=== PATIENT | female | born 1945 | race Caucasian/White ===

== ENCOUNTER → 2017-08-19 | Outpatient (REF) | payer MEDICARE, OTHER ==
[~2017-08-19] MED LIST: /MOM400 PO; BACTDSTA PO; CALC500T21 PO; LISI5TAB PO; MULTTAB4 PO; OXYC-208 PO; VITA-112 PO
== END ==
LOC: M LAB REF 13:10
PROVIDERS: ATTEND Podiatrist Foot & Ankle Surgery
DX: L03.115 Cellulitis of right lower limb (principal)

== ENCOUNTER → 2017-08-30 | Outpatient (REF) | payer MEDICARE, OTHER ==
[2017-08-30 15:58] LABS: BASO # 0.1 10^3/uL (0.0-0.2); BASO % 0.9 % (0.0-1.0); EOS # 0.2 10^3/uL (0.0-0.50); IMMATURE GRANULOCYTE % 0.3 % (0-0); LYMPH # 1.1 10^3/uL (1.5-4.5); LYMPH % 15.9 % (24.0-44.0); MEAN CORPUSCULAR HEMOGLOBIN 31.5 pg (27.0-33.0); MEAN CORPUSCULAR HGB CONC 33.8 g/dl (32.0-36.5); MEAN CORPUSCULAR VOLUME 93.1 fl (80.0-96.0); MONO # 0.7 10^3/uL (0.0-0.8); MONO % 9.8 % (0.0-5.0); NEUTROPHILS # 4.9 10^3/uL (1.8-7.7); NEUTROPHILS % 70.1 % (36.0-66.0); PLATELET COUNT, AUTOMATED 288 10^3/uL (150-450); RED CELL DISTRIBUTION WIDTH 14.5 % (11.5-14.5)
== END ==
LOC: M LABDRAW1 14:12
PROVIDERS: ATTEND Podiatrist Foot & Ankle Surgery
DX: M10.9 Gout, unspecified (principal)

== ENCOUNTER → 2017-11-10 | Outpatient (CLI) | payer MEDICARE, OTHER ==
--- NOTE | 2017-11-10 09:25 | REPMRS ---
Patient History The patient states she had a clinical breast exam in 03/15 Patient is postmenopausal. Family history of breast cancer in mother at age 80. Took hormonal contraceptives for 2 years. Took unspecified hormones for 1 year 6 months. Digital Woman Screen Mammo: November 10, 2017 - Exam #: [id number] Bilateral CC and MLO view(s) were taken. Technologist: Maty Santiago, Technologist Prior study comparison: November 09, 2016, digital woman screen mammo performed at [facility]. November 08, 2015, digital woman screen mammo performed at [facility]. FINDINGS: There are scattered fibroglandular densities. There has been no change in the appearance of the mammogram from the prior studies. There is a mild amount of residual fibroglandular tissue which is fairly symmetric. There is no interval development of dominant mass, architectural distortion, or clustered microcalcification suggestive of malignancy. ASSESSMENT: BI-RADS/ACR category 1 mammogram. Negative. Recommendation Routine screening mammogram in 1 year (for women over age 40). This mammogram was interpreted with the aid of an FDA-approved computer-aided dectection system. Electronically Signed By: Ike Keen MD 11/10/17 5069
== END ==
LOC: M WHC 08:11
PROVIDERS: ATTEND Internal Medicine
DX: Z12.31 Encounter for screening mammogram for malignant neoplasm of breast (principal); Z78.0 Asymptomatic menopausal state; Z92.0 Personal history of contraception

== ENCOUNTER → 2018-11-11 | Outpatient (CLI) | payer MEDICARE, OTHER | LOC: M WHC 14:27 | DX: Z12.31 Encounter for screening mammogram for malignant neoplasm of breast (principal); M81.0 Age-related osteoporosis without current pathological fracture; Z80.3 Family history of malignant neoplasm of breast; Z92.0 Personal history of contraception; Z92.29 Personal history of other drug therapy | CPT/HCPCS: 77067 ==

== ENCOUNTER → 2019-11-13 | Outpatient (CLI) | payer MEDICARE, OTHER ==
[~2019-11-13] MED LIST changes: -/MOM400 PO; -BACTDSTA PO; +MILK10SU PO; +SULF1TAB23 PO
--- NOTE | 2019-11-13 13:56 | REPMRS ---
Patient History The patient states she has not had a clinical breast exam in over a year. Family history of breast cancer at age 80 in mother. Took hormonal contraceptives for 2 years. Took unspecified hormones for 1 year 6 months. Digital Woman Screen Mammo: November 13, 2019 - Exam #: [id number] Bilateral CC and MLO view(s) were taken. Technologist: Kaylin George, Technologist Prior study comparison: November 11, 2018, bilateral digital woman screen mammo performed at [facility]. November 10, 2017, digital woman screen mammo performed at [facility]. November 09, 2016, digital woman screen mammo performed at [facility]. FINDINGS: The breast tissue is heterogeneously dense. This may lower the sensitivity of mammography. There is a moderate amount of heterogeneously dense fibroglandular tissue which is fairly symmetric. There is no interval development of dominant mass, architectural distortion, or grouped microcalcification typical of malignancy. There has been no change in the appearance of the mammogram from the prior studies. 3-D tomosynthesis shows no additional findings. Assessment: BI-RADS/ACR category 1 mammogram. Negative Mammogram. Recommendation Routine screening mammogram of both breasts in 1 year (for women over age 40). This patient's Lifetime Breast Cancer RIsk is estimated at 7.6 %. This mammogram was interpreted with the aid of an FDA-approved computer-aided dectection system. Electronically Signed By: Salvatore Soliman MD 11/13/19 0871
== END ==
LOC: M WHC 12:59
PROVIDERS: ATTEND Internal Medicine
DX: Z12.31 Encounter for screening mammogram for malignant neoplasm of breast (principal)

== ENCOUNTER → 2020-10-02 | Outpatient (REF) | payer MEDICARE, OTHER | LOC: M LAB REF 12:39 | PROVIDERS: ATTEND Internal Medicine | DX: L65.9 Nonscarring hair loss, unspecified (principal); R23.1 Pallor ==

== ENCOUNTER → 2020-11-14 | Outpatient (CLI) | payer MEDICARE, OTHER ==
--- NOTE | 2020-11-14 09:47 | REPMRS ---
Patient History Family history of breast cancer at age 80 in mother. Took hormonal contraceptives for 2 years. Took unspecified hormones for 1 year 6 months. Digital Woman Screen Mammo: November 14, 2020 - Exam #: [id number] Bilateral CC and MLO view(s) were taken. Technologist: Kaylin George, Technologist Prior study comparison: November 13, 2019, bilateral digital woman screen mammo performed at [facility]. November 11, 2018, bilateral digital woman screen mammo performed at [facility]. November 10, 2017, digital woman screen mammo performed at [facility]. FINDINGS: There are scattered fibroglandular densities. The Volpara volumetric breast density category is:B. There has been no change in the appearance of the mammogram from the prior studies. There is a mild amount of scattered fibroglandular density which is fairly symmetric. There is no interval development of dominant mass, architectural distortion, or grouped microcalcification suggestive of malignancy. 3-D tomosynthesis shows no additional findings. Assessment: BI-RADS/ACR category 1 mammogram. Negative Mammogram. Recommendation Routine screening mammogram of both breasts in 1 year (for women over age 40). This patient's [facility] Lifetime Breast Cancer Risk is estimated at 7.0 %. This mammogram was interpreted with the aid of an FDA-approved computer-aided dectection system. Electronically Signed By: Salvatore Soliman MD 11/14/20 0946
== END ==
LOC: M WHC 09:03
PROVIDERS: ATTEND Internal Medicine
DX: Z12.31 Encounter for screening mammogram for malignant neoplasm of breast (principal); M81.0 Age-related osteoporosis without current pathological fracture; Z80.3 Family history of malignant neoplasm of breast; Z92.0 Personal history of contraception

== ENCOUNTER → 2020-11-27 | Outpatient (CLI) | payer MEDICARE, OTHER ==
--- NOTE | 2020-11-27 14:21 | DEXAMM ---
INDICATION: M81.0 AGE RELATED OSTEOOROSIS. COMPARISON: Multiple comparison studies the most recent of which is from the November 11, 2018 and the most remote is dated September 06, 2001.. TECHNIQUE: Bone density was measured using dual-energy x-ray absorptionmetry (DEXA). FINDINGS: AP SPINE L1-L4 BMD 0.993 g/cm2 Young Adult T-Score -1.6 Age Matched Z-Score 0.1. LT FEMUR, TOTAL BMD 0.808 g/cm2 Young Adult T-Score -1.6 Age Matched Z-Score 0.2. LT NECK BMD 0.851 g/cm2 Young Adult T-Score -1.3 Age Matched Z-Score 0.6. RT FEMUR, TOTAL BMD 0.814 g/cm2 Young Adult T-Score -1.5 Age Matched Z-Score 0.2. RT NECK BMD 0.855 g/cm2 Young Adult T-Score -1.1 Age Matched Z-Score 0.9. IMPRESSION: There is low bone density of the spine. There is low bone density of the left hip. There is low bone density of the right hip. The density of the spine has increased 3.5% since the initial exam on September 06, 2001. The density of the spine decreased 1.8% since most recent exam on November 11, 2018. The density of the left hip has decreased 10.3% since initial exam on September 06, 2001. The density of the left hip has increased 1.4% since most recent exam on November 11, 2018. The density of the right hip has decreased 10.6% since the initial exam on September 06, 2001. The density of the right hip has decreased 1.1% since the most recent exam on November 11, 2018. FOLLOW-UP: Recommendation for the next bone density exam: 2 years. <Electronically signed by Salvatore Soliman > 11/27/20 [id number]
== END ==
LOC: M WHC 13:32
PROVIDERS: ATTEND Internal Medicine
DX: M81.0 Age-related osteoporosis without current pathological fracture (principal)

== ENCOUNTER → 2021-12-16 | Outpatient (CLI) | payer MEDICARE, OTHER | LOC: M WHC 09:23 | PROVIDERS: ATTEND Internal Medicine | DX: Z12.31 Encounter for screening mammogram for malignant neoplasm of breast (principal) ==

== ENCOUNTER → 2022-12-17 | Outpatient (CLI) | payer MEDICARE, OTHER | LOC: M WHC 08:38 | PROVIDERS: ATTEND Internal Medicine | DX: M81.0 Age-related osteoporosis without current pathological fracture (principal); Z12.31 Encounter for screening mammogram for malignant neoplasm of breast ==

== ENCOUNTER → 2023-11-11 | Outpatient (CLI) | payer MEDICARE, OTHER | LOC: M RAD 11:03 | PROVIDERS: ATTEND Internal Medicine | DX: R59.0 Localized enlarged lymph nodes (principal) ==

== ENCOUNTER → 2023-12-21 | Outpatient (CLI) | payer MEDICARE, OTHER | LOC: M WHC 08:34 | PROVIDERS: ATTEND Internal Medicine | DX: Z12.31 Encounter for screening mammogram for malignant neoplasm of breast (principal) ==

== ENCOUNTER → 2024-11-17 | Outpatient (REF) | payer MEDICARE, OTHER ==
[2024-11-17 17:23] LABS: APPEARANCE, URINE CLEAR (CLEAR); BACTERIA, URINE AUTO NEGATIVE (NEGATIVE); BILIRUBIN, URINE AUTO NEGATIVE (NEGATIVE); BLOOD, URINE BLOOD NEGATIVE (NEGATIVE); COLOR, URINE YELLOW (YELLOW); GLUCOSE, URINE (UA) AUTO NEGATIVE (NEGATIVE); KETONE, URINE AUTO NEGATIVE (NEGATIVE); LEUKOCYTE ESTERASE, URINE AUTO 2+ (NEGATIVE); NITRITE, URINE AUTO NEGATIVE (NEGATIVE); PROTEIN, URINE AUTO NEGATIVE (NEGATIVE); RBC, URINE AUTO 0 /HPF (0-3); SPECIFIC GRAVITY URINE AUTO 1.006 (1.002-1.035); SQUAMOUS EPITHELIAL CELL UR AU 0 /HPF (0-6); UROBILINOGEN, URINE AUTO 0.2 mg/dL (0.0-2.0); WBC, URINE AUTO 10 /HPF (0-3)
== END ==
LOC: M LAB REF 16:19
PROVIDERS: ATTEND Physician Assistant
DX: N39.0 Urinary tract infection, site not specified (principal)

== ENCOUNTER → 2024-12-26 | Outpatient (CLI) | payer OTHER | LOC: M WHC 11:09 | PROVIDERS: ATTEND Internal Medicine | DX: Z12.31 Encounter for screening mammogram for malignant neoplasm of breast (principal) ==

== ENCOUNTER 2025-08-20 10:06 | Day surgery (SDC) | payer OTHER ==
[~2025-08-20] VITALS: Ht 165.1 cm; Wt 63.4 kg
[~2025-08-20 10:06] MED LIST changes: +CALCTAB89 PO; +FEXO-63 PO; +LR 1,000 ML IV SCH; +MIDAZOLAM INJ 2 MG/2 ML VIAL As Ordered ONE; +MULTTAB61 PO; +SYNT50TA PO; +VALS1TAB66 PO; +VITA100093 PO
[2025-08-20] MEDS: TETRACAINE 0.5% OPHTH SOLN 4ML OD SCH (10:26)
[2025-08-20] MEDS: PHENYLEPHRINE 2.5% OPHTH SOL 2ML OD SCH (10:26)
[2025-08-20] MEDS: FLURBIPROFEN 0.03% OPHTH SOLN 2.5 ML OD SCH (10:26)
[2025-08-20] MEDS: CYCLOPENTOLATE 1% OPHTH SOLN 2 ML BTL OD SCH (10:26)
[2025-08-20] MEDS: CEFUROXIME 1 MG/0.1 ML INTRACAMERAL INJ As Ordered ONE (11:38)
[2025-08-20] MEDS: LIDOCAINE 1% SDV 5 ML VIAL As Ordered ONE (11:38)
[2025-08-20 12:00] VITALS: BP 178/87; TEMP 97.4; O2SAT 97
== END 2025-08-20 12:17 | disposition home or self-care (01) ==
LOC: M SDC 10:06
PROVIDERS: ATTEND Ophthalmology
DX: H25.11 Age-related nuclear cataract, right eye (principal); E03.9 Hypothyroidism, unspecified; Z79.82 Long term (current) use of aspirin; Z79.899 Other long term (current) drug therapy; Z91.040 Latex allergy status; Z88.0 Allergy status to penicillin
CPT/HCPCS: 66984; J0697; J2250; J3010; V2788

== ENCOUNTER → 2025-10-09 | Outpatient (REF) | payer OTHER ==
[~2025-10-09] MED LIST changes: -LR 1,000 ML IV SCH; -MIDAZOLAM INJ 2 MG/2 ML VIAL As Ordered ONE
== END ==
LOC: M LAB REF 16:45
PROVIDERS: ATTEND Internal Medicine
DX: N39.0 Urinary tract infection, site not specified (principal)